=== PATIENT | male | born 1975 | race African-American/Black ===

== ENCOUNTER 2018-07-09 20:20 | Inpatient (IN) ==
[2018-07-09 21:12] LABS: Basophils # 0.1 10*3/uL (0.0-0.2); Basophils % 0.3 % (0.0-0.8); Eosinophils % 0.2 % (0.00-10.9); Hematocrit 35.8 VOL% (42.0-52.0); Hemoglobin 12.6 GM/DL (14.0-18.0); Immature Granulocytes % 0.6 %; Lymphocytes # 1.2 10*3/uL (1.4-4.0); Mean Corpuscular HGB Conc 35.2 GM/DL (32-36); Mean Corpuscular Hemoglobin 31 PG (27-34); Mean Corpuscular Volume 88.8 FL (87-102); Mean Platelet Volume 8.7 FL (9.6-12.0); Monocytes # 1.4 10*3/uL (0.11-0.8); Monocytes % 8.4 % (1.7-12.7); Neutrophils # 13.9 10*3/uL (1.4-7.4); Neutrophils % 83.5 % (38.7-73.9); Platelet Count 306 T/CUMM (130-400); Red Blood Count 4.03 MC/CUMM (3.8-5.5); Red Cell Distribution Width 11.8 % (9.3-17.3); White Blood Count 16.6 T/CUMM (4-12)
[2018-07-09 21:27] LABS: Osmolality,Calculated 247.8 MOS/KG (273-304); Potassium 3.9 MMOL/L (3.5-5.1)
[2018-07-09] MEDS ORDERED: hydrALAZINE 20 MG/1 ML VIAL IV STA ×2 (21:31→21:34)
[2018-07-09] MEDS ORDERED: hydrALAZINE 20 MG/1 ML VIAL ONE (21:32)
[2018-07-09] MEDS ORDERED: HYDROmorphone 2 MG/1 ML VIAL IM STA (21:33)
[2018-07-09] MEDS ORDERED: ONDANSETRON 4 MG/2 ML VIAL IV STA (21:34)
[2018-07-09] MEDS ORDERED: HYDROmorphone 2 MG/1 ML VIAL ONE (21:34)
[2018-07-09] MEDS ORDERED: ONDANSETRON 4 MG/2 ML VIAL ONE (21:34)
[2018-07-09] MEDS ORDERED: HYDROmorphone 2 MG/1 ML VIAL IV STA ×2 (21:39→21:46)
[2018-07-09] MEDS ORDERED: ONDANSETRON 4 MG/2 ML VIAL IV PRN (21:58)
[2018-07-09] MEDS ORDERED: ACETAMINOPHEN 325 MG TABLET PO PRN (21:58)
[2018-07-09] MEDS ORDERED: HYDROmorphone 2 MG/1 ML VIAL IV PRN (21:58)
[2018-07-09] MEDS ORDERED: MORPHINE 4 MG/1 ML VIAL IV PRN (21:58)
[2018-07-10] MEDS: PIPERACILLIN/TAZOBACTAM 3,375 MG in SODIUM CHLORIDE 0.9% 100 ML IV SCH ×2 (00:01→06:30)
[2018-07-10] MEDS: LACTATED RINGERS 1,000 ML IV SCH (00:01)
[2018-07-10 07:09] LABS: Calcium 8.9 MG/DL (8.5-10.1); Osmolality,Calculated 248.6 MOS/KG (273-304); Potassium 4.8 MMOL/L (3.5-5.1)
[2018-07-10] MEDS ORDERED: LIDOCAINE 1%/EPI INJ 20 ML VIAL ONE (07:55)
[2018-07-10] MEDS ORDERED: BUPIVACAINE MPF 0.25% 30 ML VIAL ONE (07:55)
[2018-07-10] MEDS ORDERED: METOCLOPRAMIDE 10 MG/2 ML VIAL ONE (07:57)
[2018-07-10] MEDS ORDERED: FAMOTIDINE 20 MG/2 ML VIAL IV ONE (07:58)
[2018-07-10] MEDS ORDERED: PROPOFOL 200 MG/20 ML VIAL IV ONE (08:47)
[2018-07-10] MEDS ORDERED: SEVOFLURANE 1 UNIT/15 MINUTE INH ONE (08:47)
[2018-07-10] MEDS ORDERED: fentaNYL 100 MCG/2 ML VIAL ONE (08:47)
[2018-07-10] MEDS ORDERED: LISINOPRIL 10 MG TABLET PO SCH (09:00)
[2018-07-10] MEDS ORDERED: ONDANSETRON 4 MG/2 ML VIAL IV PRN (09:01)
[2018-07-10] MEDS ORDERED: HYDROmorphone 2 MG/1 ML VIAL IV PRN (09:01)
[2018-07-10] MEDS: PANTOPRAZOLE 40 MG TABLET PO SCH (09:54)
[2018-07-10] MEDS: metroNIDAZOLE 500 MG TABLET PO SCH ×3 (11:30→21:22)
[2018-07-10] MEDS: CIPROFLOXACIN 500 MG TABLET PO SCH ×2 (11:30→21:22)
[2018-07-10] MEDS: SODIUM CHLORIDE 0.9% 1,000 ML IV SCH ×2 (12:00→14:11)
[2018-07-10] MEDS ORDERED: CLORAZEPATE 3.75 MG TABLET PO PRN (12:01)
[2018-07-10] MEDS: ENOXAPARIN 40 MG/0.4 ML SYRINGE SUBCUT SCH (14:04)
[2018-07-10] MEDS: amLODIPine 10 MG TABLET PO SCH (14:09)
[2018-07-10] MEDS: LISINOPRIL 20 MG TABLET PO SCH (14:09)
[2018-07-10] MEDS: NICOTINE 21 MG/24 HR PATCH TRANSDERM SCH (14:10)
[2018-07-10 14:45] LABS: Apearance,Urine CLEAR (Clear); Bilirubin,Urine Negative (Negative); Blood, Urine Small mg/dL (Negative); Glucose,Urine (UA) Negative (Negative); Ketones,Urine Negative (Negative); Nitrite,Urine Negative (Negative); Protein,Urine Negative; RBC,Urine 2 /HPF (0-4); Squamous Epithelial Cell,Urine Occasional /HPF (0-10); Urine Color Yellow (Yellow); Urine Specific Gravity 1.004 (1.001-1.035); Urine Urobilinogen < 2.0 EU/DL (0.2-1.0); WBC,Urine 21 /HPF (0-6)
[2018-07-11] MEDS: SODIUM CHLORIDE 0.9% 1,000 ML IV SCH ×6 (02:15→22:32)
[2018-07-11] MEDS: LACTATED RINGERS 1,000 ML IV SCH (03:14)
[2018-07-11 05:26] LABS: Basophils # 0.1 10*3/uL (0.0-0.2); Basophils % 0.6 % (0.0-0.8); Eosinophils # 0.1 10*3/uL (0.0-0.87); Eosinophils % 1.3 % (0.00-10.9); Hematocrit 30.4 VOL% (42.0-52.0); Hemoglobin 10.3 GM/DL (14.0-18.0); Immature Granulocytes % 0.6 %; Immature Granulocytes Absolute 0.06 #; Lymphocytes # 1.3 10*3/uL (1.4-4.0); Lymphocytes % 13.5 % (21.2-54.2); Mean Corpuscular HGB Conc 33.9 GM/DL (32-36); Mean Corpuscular Hemoglobin 31 PG (27-34); Mean Corpuscular Volume 91.3 FL (87-102); Mean Platelet Volume 8.9 FL (9.6-12.0); Monocytes # 1.2 10*3/uL (0.11-0.8); Monocytes % 12.4 % (1.7-12.7); Neutrophils # 6.8 10*3/uL (1.4-7.4); Neutrophils % 71.6 % (38.7-73.9); Platelet Count 286 T/CUMM (130-400); Red Blood Count 3.33 MC/CUMM (3.8-5.5); Red Cell Distribution Width 11.9 % (9.3-17.3); White Blood Count 9.5 T/CUMM (4-12)
[2018-07-11 05:59] LABS: Calcium 8.6 MG/DL (8.5-10.1); Osmolality,Calculated 258.8 MOS/KG (273-304); Potassium 4.2 MMOL/L (3.5-5.1)
[2018-07-11] MEDS: CIPROFLOXACIN 500 MG TABLET PO SCH ×2 (09:15→20:38)
[2018-07-11] MEDS: metroNIDAZOLE 500 MG TABLET PO SCH ×3 (09:15→20:38)
[2018-07-11] MEDS: PANTOPRAZOLE 40 MG TABLET PO SCH (09:16)
[2018-07-11] MEDS: LISINOPRIL 20 MG TABLET PO SCH (09:16)
[2018-07-11] MEDS: NICOTINE 21 MG/24 HR PATCH TRANSDERM SCH (09:16)
[2018-07-11] MEDS: amLODIPine 10 MG TABLET PO SCH (09:16)
[2018-07-11] MEDS: ENOXAPARIN 40 MG/0.4 ML SYRINGE SUBCUT SCH (11:49)
[2018-07-12] MEDS: SODIUM CHLORIDE 0.9% 1,000 ML IV SCH (05:02)
[2018-07-12] MEDS: CIPROFLOXACIN 500 MG TABLET PO SCH (08:22)
[2018-07-12] MEDS: metroNIDAZOLE 500 MG TABLET PO SCH (08:22)
[2018-07-12] MEDS: amLODIPine 10 MG TABLET PO SCH (08:23)
[2018-07-12] MEDS: PANTOPRAZOLE 40 MG TABLET PO SCH (08:23)
[2018-07-12] MEDS: LISINOPRIL 20 MG TABLET PO SCH (08:23)
[2018-07-12] MEDS: NICOTINE 21 MG/24 HR PATCH TRANSDERM SCH (08:26)
[2018-07-12 08:28] VITALS: BP 178/95
[2018-07-12] MEDS: ENOXAPARIN 40 MG/0.4 ML SYRINGE SUBCUT SCH (10:18)
== END 2018-07-12 11:35 | disposition home or self-care (01) | DRG 394 ==
LOC: N.EDINP 20:20 → N.ED 20:20 → N.EDINP 21:53 → N.3E 22:19
PROVIDERS: ADMIT Surgery; ATTEND Surgery